=== PATIENT | female | born 1995 | race American Indian/Alaskan Native ===

== ENCOUNTER 2021-03-06 06:35 | Outpatient (CLI) | payer BC, OTHER ==
[2021-03-06 07:24] VITALS: BP 134/68
[2021-03-06 08:00] LABS: Bacteria,Urine 1+ /HPF (Negative); Bilirubin,Urine NEG (Negative); Blood,Urine NEG (Negative); Color,Urine Yellow (Yellow); Mucus,Urine FEW /HPF; Protein,Urine <15 mg/dL mg/dL (Negative); Urobilinogen,Urine < 2.0 mg/dL (<2.0)
[2021-03-06] MEDS ORDERED: LACTATED RINGERS 500 ML IV ONE (09:00)
[2021-03-06] MEDS ORDERED: NITROFURANTOIN MONOHYD/M-CRYST 100 MG CAP PO SCH (09:00)
== END 2021-03-06 08:40 | disposition home or self-care (01) ==
LOC: TRG 06:35 → APU 06:36 → TRG 08:40
PROVIDERS: ATTEND Obstetrics & Gynecology
DX: Z34.92 Encounter for supervision of normal pregnancy, unspecified, second trimester (principal); Z3A.24 24 weeks gestation of pregnancy
CPT/HCPCS: 59025; 81001; 87086